=== PATIENT | male | born 1970 | race Caucasian/White ===

== ENCOUNTER 2018-07-03 09:12 | Emergency (ER) | payer SELFPAY ==
[~2018-07-03] VITALS: Ht 175.3 cm; Wt 79.0 kg
[2018-07-03 09:33] VITALS: BP 146/95
== END 2018-07-03 14:52 | disposition left against medical advice (07) ==
LOC: ER 09:12
DX: M54.2 Cervicalgia (principal); M79.604 Pain in right leg; M79.601 Pain in right arm; M54.9 Dorsalgia, unspecified; Z53.21 Procedure and treatment not carried out due to patient leaving prior to being seen by health care provider

== ENCOUNTER 2018-10-07 16:11 | Emergency (ER) | payer SELFPAY ==
[~2018-10-07] VITALS: Ht 175.3 cm; Wt 79.2 kg
[2018-10-07] MEDS ORDERED: SODIUM CHLORIDE 0.9% 1,000 ML IV ONE (16:49)
[2018-10-07] MEDS ORDERED: MORPHINE SULFATE 4 MG/ML CPJ (NOT FOR IM USE) IV STA (16:49)
[2018-10-07] MEDS ORDERED: ONDANSETRON HCL 4MG/2ML INJ IV STA (16:49)
[2018-10-07 17:31] LABS: HEMOGLOBIN. 11.9 g/dL (14.0-18.0); MEAN CORPUSCULAR HEMOGLOBIN 32.2 pg (28.0-32.0); MEAN CORPUSCULAR VOLUME 95.1 fL (80.0-94.0); MEAN PLATELET VOLUME 8.6 fl (7.4-10.4); PLATELET 173 x1000/uL (130-400); RED BLOOD CELL COUNT 3.69 mill/uL (4.7-6.1); RED CELL DISTRIBUTION WIDTH 16.3 % (11.6-14.6)
[2018-10-07 17:34] LABS: CHLORIDE 107 mEq/L (98-107)
[2018-10-07 17:43] LABS: INR 0.9; PROTHROMBIN TIME 9.7 sec (9.6-11.0)
[2018-10-07] MEDS ORDERED: MORPHINE SULFATE 4 MG/ML CPJ (NOT FOR IM USE) IV ONE (18:00)
[2018-10-07 18:25] VITALS: BP 155/89
[2018-10-07 19:22] LABS: PLATELET ESTIMATE NORMAL
== END 2018-10-07 18:26 | disposition left against medical advice (07) ==
LOC: ER 16:11
DX: S39.91XA Unspecified injury of abdomen, initial encounter (principal); R53.1 Weakness; D53.9 Nutritional anemia, unspecified; M54.5 Low back pain; Z90.49 Acquired absence of other specified parts of digestive tract; Z98.890 Other specified postprocedural states; Z88.6 Allergy status to analgesic agent; Z88.8 Allergy status to other drugs, medicaments and biological substances; V49.88XA Car occupant (driver) (passenger) injured in other specified transport accidents, initial encounter; Y93.89 Activity, other specified; Y92.89 Other specified places as the place of occurrence of the external cause; Y99.8 Other external cause status
CPT/HCPCS: 36415; 71045; 72170; 80053; 85025; 85610; 86850; 86900; 86901; 96374; 96375; 96376; 99291; J2270; J2405; J7030; Z7610